=== PATIENT | male | born 1965 | race Caucasian/White ===

== ENCOUNTER → 2019-04-26 | Outpatient (CLI) | payer BC ==
--- NOTE | 2019-04-26 16:01 | Diagnostic Imaging Report ---
Exam time: 04/26/2019 3:51 PM REASON FOR EXAM: Right groin pain. History of bilateral epididymal cysts. COMPARISON: Testicular ultrasound on 01/10/2015. TECHNIQUE: High resolution real-time imaging of both testicles was performed. FINDINGS: The testicles are normal in size, shape and echogenicity. The right testis measures 4.4 x 2.9 x 4.0 cm. The left testis measures 4.5 x 2.5 x 3.3 cm. There is normal color flow Doppler signal of both testicles. No focal testicular mass is seen on either side. Bilateral epididymal head cysts are visualized, with the largest on the left measuring 1.4 x 1.0 x 1.3 cm and the largest on the right measuring 1.8 x 1.5 x 1.3 cm. No evidence of epididymitis. Bilateral small hydroceles are present. IMPRESSION: 1. Bilateral epididymal head cysts. These are largely stable compared to prior exam. 2. Normal sonographic appearance of the testicles. No evidence of torsion. 3. Bilateral small hydroceles. Dictated by: Dictated on workstation # [id number]
== END ==
LOC: RAD 15:02
PROVIDERS: ATTEND Nurse Practitioner
DX: N50.3 Cyst of epididymis (principal); N43.3 Hydrocele, unspecified
CPT/HCPCS: 76870

== ENCOUNTER 2020-07-06 18:13 | Emergency (ER) | payer BC ==
[~2020-07-06] VITALS: Ht 180.3 cm; Wt 90.7 kg
--- NOTE | 2020-07-06 18:35 | ED Abdominal Pain ---
General Chief Complaint: Abdominal/GI Problems Stated Complaint: ABD PAIN Source of Information: Patient History of Present Illness Date Seen by Provider: Jul 06, 2020 Time Seen by Provider: 18:35 Initial Comments Patient is a 54-year-old male who presents to the emergency room today with a chief complaint of diffuse lower abdominal pain. Patient states it has been 4 days since his last bowel movement. Patient states he just had a 12-hour car ride and has been traveling for work. Patient states that his , who is a nurse, gave him some nuhj-lmx-sptpvjt stool softeners without any relief of symptoms. Patient states he is never had issues with constipation in the past. Patient states he is had some difficulty urinating as well and states that he is only able to go really when he is in a warm shower. Patient states that he has been able to eat and drink okay although he has been avoiding any solid foods. Patient states that he did pass a little fluid per rectum today but very minimal amounts. Patient denies any chronic medical conditions. Only takes ajsh-jvl-xvoppvi vitamin supplements. Denies any fevers, chills, nausea vomiting. Denies any blood per rectum. All other review of systems reviewed negative except as stated. Timing/Duration: 3-4 Days Severity/Quality: Moderate, Cramping Location: RLQ, LLQ Radiation: Back Activities at Onset: None Associated Symptoms: Back Pain Allergies and Home Medications Allergies Coded Allergies: No Known Allergies (Verified Allergy, Unknown, 07/06/20) Patient Home Medication List Home Medication List Reviewed: Yes Review of Systems Review of Systems Constitutional: no symptoms reported Respiratory: No Symptoms Reported Cardiovascular: No Symptoms Reported Gastrointestinal: No Symptoms Reported, Abdomen Distended, Abdominal Pain, Constipated Genitourinary: Other (Difficulty with urination) Musculoskeletal: no symptoms reported Skin: no symptoms reported Past Ovukewz-Iwhwav-Ciijko Hx Patient Social History Recent Foreign Travel: No Contact w/Someone Who Travel: No Physical Exam Vital Signs Vital Signs - First Documented 07/06/20 18:33 Temp 36.9 Pulse 108 Resp 18 B/P (MAP) 162/99 (120) O2 Delivery Room Air Capillary Refill : Height/Weight/BMI Height: '" Weight: lbs. oz. kg; BMI Method: General Appearance: WD/WN, no apparent distress Respiratory: lungs clear, normal breath sounds, no respiratory distress, no accessory muscle use Cardiovascular: regular rate, rhythm Gastrointestinal: normal bowel sounds, soft, guarding (Left lower quadrant and right lower quadrant as well as suprapubic) Rectal: normal exam, normal rectal tone, heme positive stool, other (No external hemorrhoids are noted patient has copious amounts of soft stool in the rectal vault) Extremities: normal range of motion, normal inspection Skin: normal color, warm/dry Progress/Results/Core Measures Results/Orders My Orders Orders - JUANA BLACK MD Abdomen/Kub 1view (07/06/20 18:41) Magnesium Citrate Oral Soln (Citrate Of (07/06/20 19:00) Medications Given in ED Current Medications Medications Dose Ordered Sig/Mello Route Start Time Stop Time Status Last Admin Dose Admin Magnesium Citrate 300 ml ONCE ONCE PO 07/06/20 19:00 07/06/20 19:01 DC 07/06/20 19:10 300 ML Vital Signs/I&O 07/06/20 18:33 Temp 36.9 Pulse 108 Resp 18 B/P (MAP) 162/99 (120) O2 Delivery Room Air Progress Progress Note : Time: 19:00 Progress Note 54-year-old male with a chief complaint of being constipated. Evaluation today includes a physical exam with a rectal exam. Patient was noted to be fecal occult blood positive after digital rectal exam. Patient was treated with 300 mL's of magnesium citrate here in the emergency department. He will be monitored until he has the urge to pass some stool. Patient's abdominal exam is quite benign except for some voluntary guarding in the right and lower left quadrants with some few suprapubic voluntary guarding as well. No rebound tenderness, no other peritoneal findings. 2021 Patient declined to take the magnesium citrate here in the emergency department. Would like to take it when he goes home. Clinically the patient has significant constipation with copious amounts of soft brown stool in the vault. The patient was Hemoccult positive however I believe secondary to all the straining the patient has some internal hemorrhoids. He has no clinical or objective findings at this time to indicate surgical abdomen or any acute abdominal pathology. Patient is encouraged to use mag citrate at home. He is encouraged to drink plenty of fluids. He is also advised to follow-up with his primary care physician. He is given good return precautions all questions were sought and answered and he is stable for discharge. Diagnostic Imaging Diagonstic Imaging: Xray Plain Films/CT/US/NM/MRI: other (KUB) Comments I reviewed the patient's flat plate KUB, he has copious amounts of stool consistent with constipation. Rest of his bowel gas pattern appears normal. Departure Impression Primary Impression: Abdominal pain Qualified Codes: R10.30 - Lower abdominal pain, unspecified Additional Impression: Constipation Qualified Codes: K59.00 - Constipation, unspecified Disposition: HOME, SELF-CARE Condition: Stable Departure-Patient Inst. Decision time for Depature: 20:16 Referrals: SUPA GROSSMAN MD (PCP/Family) Primary Care Physician Patient Instructions: Constipation in Adults Add. Discharge Instructions: Please drink plenty of fluids to stay well-hydrated. Use fjpe-xos-mbukjim magnesium citrate 150 to 300 mL once a day for the next 3 days. If you have any worsening symptoms, pass bright red blood in your stool, fevers, worsening pain or any other emergent concerns please come back to the emergency room for reevaluation. Please follow-up with your primary care doctor All discharge instructions reviewed with patient and/or family. Voiced understanding. JUANA BLACK MD Jul 06, 2020 18:35
[2020-07-06] MEDS ORDERED: MAGNESIUM CITRATE 300 ML BTL PO ONE (19:00)
--- NOTE | 2020-07-06 19:08 | Diagnostic Imaging Report ---
INDICATION: Abdominal pain. COMPARISON: None. EXAMINATION: Single view of the abdomen was obtained. FINDINGS: Mild constipation without obstruction, ileus or large pocket of free air. Osseous structures are normal. IMPRESSION: Mild constipation. Dictated by: Dictated on workstation # [id number]
[2020-07-06 20:27] VITALS: BP 162/99
== END 2020-07-06 20:28 | disposition home or self-care (01) ==
LOC: EDUNIT# 18:13 → ER 18:14
DX: R10.32 Left lower quadrant pain (principal); R10.31 Right lower quadrant pain; K59.00 Constipation, unspecified
CPT/HCPCS: 74018

== ENCOUNTER 2021-05-15 08:52 | Outpatient (CLI) | payer BC ==
[~2021-05-15] VITALS: Ht 183 cm; Wt 93.2 kg
== END 2021-05-19 09:09 | disposition home or self-care (01) ==
LOC: PREOP 08:52
PROVIDERS: ATTEND Internal Medicine
DX: Z01.818 Encounter for other preprocedural examination (principal)

== ENCOUNTER 2021-05-23 07:00 | Day surgery (SDC) | payer BC ==
--- NOTE | 2021-05-16 06:54 | HISTORY AND PHYSICAL ---
DATE OF SERVICE: COLONOSCOPY HISTORY AND PHYSICAL HISTORY OF PRESENT ILLNESS: The patient is a 55-year-old white male referred by Dr. Paulino for his first screening colonoscopy. He is deemed to be of average risk. He is not aware of any family history for colon cancer. He denies change in bowel habit, bright red blood per rectum, melena or abdominal pain. He reports he has been in the usual state of good health. PAST MEDICAL HISTORY: He takes no prescription medications, occasional ibuprofen for intermittent mild discomfort and he does take a baby aspirin daily for primary prevention. In review of his electronic medical record, he did have an emergency room visit for bilateral crampy lower quadrant abdominal pain in June of last year. He had a lot of stool in the vault. He was heme positive at that time, but that was felt to be due to straining. He had not seen any blood in the stool. There was lot of stool noted on KUB with no other blood work at that time. FAMILY HISTORY: Mother is living at age 78 with no health problems. Father living, age 76 with recent pacemaker placement. No reported malignancy. SOCIAL HISTORY: He works for [employer] with no past smoking history and occasional social alcohol intake reported as a beer or two over the weekends. PAST SURGICAL HISTORY: He had a lipoma removed from his right thigh. REVIEW OF SYSTEMS: CONSTITUTIONAL: Denies change in weight, night sweats, chills or fever. PULMONARY: Denies cough, shortness of breath or wheezing. CARDIOVASCULAR: Denies chest pain, orthopnea, PND, dyspnea on exertion, syncope or presyncope. GASTROINTESTINAL: As noted in the HPI. PHYSICAL EXAMINATION: GENERAL: Reveals a white male, appears to be in no acute distress. VITAL SIGNS: Weight 205 pounds, blood pressure 130/86. HEENT: Unremarkable. Sclerae nonicteric. CHEST: Clear to auscultation. CARDIOVASCULAR: Reveals a regular rate and rhythm without murmur, S3 or S4. ABDOMEN: Soft, supple without mass, organomegaly or tenderness. EXTREMITIES: Reveal no cyanosis, clubbing or edema. ASSESSMENT AND PLAN: The patient is being set up for his first screening colonoscopy. Rationale for screening colonoscopy discussed. Prep instructions discussed. Questions answered. Electronic medical record reviewed. I thank you for the referral of this pleasant gentleman. Job ID: [id number] DocumentID: [id number] Dictated Date: 05/08/2021 09:57:17 Aircraft Refueler Date: 05/08/2021 10:06:02 Dictated By: WILBERTO STEVENS MD
[~2021-05-23] VITALS: Ht 183 cm; Wt 93.2 kg
[2021-05-23] MEDS ORDERED: LACTATED RINGERS 1,000 ML IV STA (07:03)
[2021-05-23] MEDS ORDERED: LACTATED RINGERS 1,000 ML IV ONE (07:08)
[2021-05-23] MEDS ORDERED: LIDOCAINE JELLY 2% 6 ML SYRINGE MM PRN (07:15)
[2021-05-23 07:21] VITALS: BP 123/89
[2021-05-23] MEDS ORDERED: PROPOFOL INJECTION 50 ML IV ONE (07:36)
[2021-05-23 08:30] VITALS: BP 104/71
--- NOTE | 2021-05-23 08:30 | Pre-Op Note & Conscious Sedat ---
Pre-Operative Progress Note H&P Reviewed The H&P was reviewed, patient examined and no changes noted. Date H&P Reviewed: May 23, 2021 Time H&P Reviewed: 07:40 Conscious Sedation Pre-Proced ASA Score 1 For ASA 3 and 4: Consider anesthesia and medical clearance. Also, for patients with a history of failed moderate sedation consider anesthesia. Airway Lungs Heart ASA score ASA 1: a normal healthy patient ASA 2: a patient with a mild systemic disease (mid diabetes, controlled hypertension, obesity ASA 3: a patient with a severe systemic disease that limits activity (angina, COPD, prior Myocardial infarction) ASA 4: a patient with an incapacitating disease that is a constant threat to life (CHF, renal failure) ASA 5: a moribund patient not expected to survive 24 hrs. (ruptured aneurysm) ASA 6: a declared brain- patient whose organs are being harvested. For emergent operations, add the letter E after the classification Mallampati Classification Grade 2 Sedation Plan Analgesia, Amnesia, Plan communicated to team members, Discussed options with patient/fam, Discussed risks with patient/fam The patient is an appropriate candidate to undergo the planned procedure, sedation, and anesthesia. The patient immediately re-assessed prior to indication. WILBERTO STEVENS MD May 23, 2021 08:30
[2021-05-23 08:45] VITALS: BP 108/62
[2021-05-23 09:05] VITALS: BP 115/82
--- NOTE | 2021-05-23 10:51 | Anesthesia-General Post-Op ---
MAC Patient Condition Mental Status/LOC: Same as Preop Cardiovascular: Satisfactory Nausea/Vomiting: Absent Respiratory: Satisfactory Pain: Controlled Complications: Absent Post Op Complications Complications None Follow Up Care/Instructions Patient Instructions None needed. Anesthesiology Discharge Order Discharge Order Patient is doing well, no complaints, stable vital signs, no apparent adverse anesthesia problems. No complications reported per nursing. PARKER YAN CRNA May 23, 2021 10:51
--- NOTE | 2021-05-23 14:28 | OPERATIVE REPORT ---
DATE OF SERVICE: COLONOSCOPY SUMMARY INDICATION FOR THE PROCEDURE: Screening colonoscopy. DESCRIPTION OF PROCEDURE: The patient was placed in the left lateral decubitus position. Prior to undergoing colonoscopy, digital rectal evaluation was performed. Anal sphincter tone was normal and the perianal reflexes intact. The prostate was unremarkable to digital inspection. No nodularity noted. No abnormalities noted on digital inspection of anal canal or distal rectal vault. The colonoscope was then inserted into the rectum and under direct visualization advanced to cecum. The cecum was identified by identification of the ileocecal valve and cecal strap. Photographic documentation was obtained. A careful inspection was made as the colonoscope was withdrawn. FINDINGS: There was no evidence for internal or external hemorrhoids and the rectum was unremarkable except for a diminutive 3 mm hyperplastic-appearing polyp, which was removed in its entirety via cold biopsy forceps. There was no subsequent blood loss. Remainder of the rectum, sigmoid colon, descending colon, splenic flexure, transverse colon, hepatic flexure, ascending colon and cecum were unremarkable to visual inspection with no evidence for diverticular disease. ASSESSMENT: One diminutive hyperplastic-appearing polyp was removed from the mid rectum and otherwise normal colonoscopy to the cecum including digital evaluation of the prostate. As the patient is not aware of any family history for colon cancer, advocate consideration for repeat screening colonoscopy in 10 years. I thank you for the referral of this pleasant gentleman. Job ID: [id number] DocumentID: [id number] Dictated Date: 05/23/2021 10:58:27 Airport Operations Officer Date: 05/23/2021 14:27:42 Dictated By: WILBERTO STEVENS MD
== END 2021-05-23 09:10 | disposition home or self-care (01) ==
LOC: ENDO 07:00
PROVIDERS: ATTEND Internal Medicine
DX: Z12.11 Encounter for screening for malignant neoplasm of colon (principal); K62.1 Rectal polyp; Z79.82 Long term (current) use of aspirin